=== PATIENT | female | born 2000 | race Hispanic/Latino ===

== ENCOUNTER 2019-06-04 07:17 | Emergency (ER) | payer OTHER ==
[~2019-06-04] VITALS: Ht 154.9 cm; Wt 72.6 kg
[2019-06-04] MEDS ORDERED: SODIUM CHLORIDE 0.9% 1000ML 1,000 ML IV STA (07:25)
[2019-06-04 07:53] LABS: BASOPHILS % 0.4 % (0.0-1.0); EOSINOPHILS % 0.5 % (0.0-6.0); HEMATOCRIT 34.5 % (34.2-44.1); HEMOGLOBIN 11.1 g/dL (12.0-16.0); LYMPHOCYTES # (AUTO) 1.4 (1.0-3.2); LYMPHOCYTES % 17.8 % (18.0-39.1); MEAN CORPUSCULAR HEMOGLOBIN 22.9 pg (28-32); MEAN CORPUSCULAR HGB CONC 32.2 g/dL (31-35); MEAN CORPUSCULAR VOLUME 71.1 fL (81-99); MONOCYTES # (AUTO) 0.8 (0.2-0.8); MONOCYTES % 9.8 % (4.4-11.3); NEUTROPHILS # (AUTO) 5.5 (2.1-6.9); PLATELET COUNT 350 x10e3/uL (140-360); RED BLOOD COUNT 4.85 x10e6/uL (3.6-5.1)
--- NOTE | 2019-06-04 08:05 | Diagnostic Imaging Report ---
EXAMINATION: CHEST 2 VIEWS INDICATION: Chest pain COMPARISON: None FINDINGS: TUBES and LINES: None. LUNGS: Lungs are well inflated. Lungs are clear. There is no evidence of pneumonia or pulmonary edema. PLEURA: No pleural effusion or pneumothorax. HEART AND MEDIASTINUM: The cardiomediastinal silhouette is unremarkable. BONES AND SOFT TISSUES: No acute osseous lesion. Soft tissues are unremarkable. UPPER ABDOMEN: No free air under the diaphragm. IMPRESSION: No acute thoracic radiographic abnormality. Signed by: Anders Arrington DO on 06/04/2019 8:02 AM
[2019-06-04] MEDS ORDERED: KETOROLAC TROMETHAMINE 30 MG/ML VIAL IV STA (08:11)
[2019-06-04 08:15] LABS: ALANINE AMINOTRANSFERASE 12 IU/L (0-55); ALBUMIN 3.6 g/dL (3.5-5.0); ALKALINE PHOSPHATASE 70 IU/L (40-150); ANION GAP 15.9 mmol/L (8-16); BLOOD UREA NITROGEN 5 mg/dL (7-26); BUN/CREATININE RATIO 7 (6-25); CALCIUM 8.9 mg/dL (8.4-10.2); CARBON DIOXIDE 21 mmol/L (22-29); CHLORIDE 103 mmol/L (98-107); CREATINE KINASE 36 IU/L (29-168); EST GLOMERULAR FILTRATION RATE > 60 ML/MIN (60-); GLUCOSE 105 mg/dL (74-118); SODIUM 137 mmol/L (136-145)
[2019-06-04 08:18] LABS: PHENCYCLIDINE SCREEN,URINE NEGATIVE (NEGATIVE)
[2019-06-04 08:19] LABS: AMPHETAMINES SCREEN,URINE NEGATIVE (NEGATIVE); BENZODIAZEPINES SCREEN,URINE NEGATIVE (NEGATIVE)
[2019-06-04 08:26] LABS: POTASSIUM 2.9 mmol/L (3.5-5.1)
[2019-06-04] MEDS ORDERED: POTASSIUM CHLORIDE 10MEQ EA PO ONE (08:50)
--- NOTE | 2019-06-04 09:58 | Diagnostic Imaging Report ---
CT of the chest, PE protocol, with contrast. History: Chest pain. Comparison: Chest radiograph from earlier 06/04/2019. Technique: Multidetector thin collimation CT scanning of the chest was performed from the level of the apices to the upper abdomen during the pulmonary arterial phase, after intravenous administration of contrast. Coronal and sagittal reformations were reviewed. RADIATION DOSE: Total DLP: 477.88 mGy*cm Dose modulation, iterative reconstruction, and/or weight based adjustment of the mA/kV was utilized to reduce the radiation dose to as low as reasonably achievable. FINDINGS: There is contrast opacification of the pulmonary arteries to the level of the segmental arteries. The more distal segmental and subsegmental arteries are not well opacified and suboptimally evaluated. The pulmonary arteries distribute normally. There is no evidence of a filling defect to the level of the segmental arteries to suggest pulmonary thromboembolism. The thyroid and remaining visualized structures within the base of the neck demonstrate no significant abnormalities. The thoracic aorta is normal course and caliber. The heart is not enlarged. There is no abnormal pericardial fluid present. Normal-sized axillary lymph nodes noted. There is no abnormal axillary, mediastinal, or hilar lymph node enlargement. The trachea and proximal airways are patent. Examination of the lungs demonstrate no evidence for consolidation, pneumothorax, mass, suspicious nodule, or pleural effusion. The visualized upper abdominal contents demonstrate no significant abnormalities. The osseous structures demonstrate no evidence for acute fracture or destructive process. The extrathoracic soft tissues are unremarkable. IMPRESSION: No evidence for pulmonary thromboembolism or other acute intrathoracic process Signed by: Dr. Larry Daley MD on 06/04/2019 9:54 AM
[2019-06-04] MEDS ORDERED: SODIUM CHLORIDE 0.9% INJ 50 ML BAG IV ONE (16:13)
[2019-06-04] MEDS ORDERED: IOPAMIDOL 370 MG/ML 50ML INFUS..BTL INJ ONE (16:14)
--- OUTSIDE RECORDS SUMMARY | 2019-06-13 10:51 | XMS REPORT ---
Author Author [facility] Address Unknown Phone Unavailable Care Team Providers Care Medicine Teacher Name Role Phone AMILCAR HALL Unavailable Unavailable Problems This patient has no known problems. Allergies, Adverse Reactions, Alerts This patient has no known allergies or adverse reactions. Medications This patient has no known medications. Results Test Description Test Time Test Comments Text Results Atomic Results Result Comments CT CHEST W 2019-06-04 09:47:00 [facility] [address] [id number] Patient Name: CONNOR DON MR #: [id number] : 2000 Age/Sex: 19/F Req #: [id number] Adm Physician: Ordered by: AMILCAR HALL DO Report #: [id number] Location: ER Room/Bed: Procedure: [id number] CT/CT CHEST W Exam Date: 06/04/19 Exam Time: 929 REPORT STATUS: Signed CT of the chest, PE protocol, with contrast. History: C hest pain. Comparison: Chest radiograph from earlier 06/04/2019. Technique: Multidetector thin collimation CT scanning of the chest was performed from the level of the apices to the upper abdomen during the pulmonary arterial phase, after intravenous administration of contrast. Coronal and sagittal reformations were reviewed. RADIATION DOSE: Total DLP: 477.88 mGy*cm Dose modulation, iterative reconstruction, and/or weight based adjustment of the mA/kV was utilized to reduce the radiation dose to as low as reasonably achievable. FINDINGS: There is contrast opacification of the pulmonary arteries to the level of the segmental arteries. The more distal segmental and subsegmental arteries are not well opacified and suboptimally evaluated. The pulmonary arteries distribute normally. There is no evidence of a filling defect to the level of the segmental arteries to suggest pulmonary thromboembolism. The thyroid and remaining visualized structures within the base of the neck demonstrate no significant abnormalities. The thoracic aorta is normal course and caliber. The heart is not enlarged. There is no abnormal pericardial fluid present. Normal-sized axillary lymph nodes noted. There is no abnormal axillary, mediastinal, or hilar lymph node enlargement. The trachea and proximal airways are patent. Examination of the lungs demonstrate no evidence for consolidation, pneumothorax, mass, suspicious nodule, or pleural effusion. The visualized upper abdominal contents demonstrate no significant abnormalities. The osseous structures demonstrate no evidence for acute fracture or destructive process. The extrathoracic soft tissues are unremarkable. IMPRESSION: No evidence for pulmonary thromboembolism or other acute intrathoracic process Signed by: Dr. Larry Daley MD on 06/04/2019 9:54 AM Dictated By: LARRY DALEY MD 3 Transcribed By: RANI on 06/04/19953 COPY TO: AMILCAR HALL DO CHEST 2 VIEWS 2019-06-04 08:02:00 [address] [id number] Patient Name: CONNOR DON MR #: [id number] : 2000 Age/Sex: 19/F Req #: [id number] Adm Physician: Ordered by: AMILCAR HALL DO Report #: [id number] Location: ER Room/Bed: Procedure: [id number] DX/CHEST 2 VIEWS Exam Date: 06/04/19 Exam Time: 0720 REPORT STATUS: Signed EXAMINATION: CHEST 2 VIEWS INDICATION: Chest pain COMPARISON: None FINDINGS: TUBES and LINES: None. LUNGS: Lungs are well inflated. Lungs are clear. There is no evidence of pneumonia or pulmonary edema. PLEURA: No pleural effusion or pneumothorax. HEART AND MEDIASTINUM: The cardiomediastinal silhouette is unremarkable. BONES AND SOFT TISSUES: No acute osseous lesion. Soft tissues are unremarkable. UPPER ABDOMEN: No free air under the diaphragm. IMPRESSION: No acute thoracic radiographic abnormality. Signed by: Anders Arrington DO on 06/04/2019 8:02 AM Dictated By: ANDERS ARRINGTON DO 1 Transcribed By: RANI on 06/04/19801 COPY TO: AMILCAR HALL DO
== END 2019-06-04 10:53 | disposition home or self-care (01) ==
LOC: ER 07:17
DX: R07.89 Other chest pain (principal); E87.6 Hypokalemia
CPT/HCPCS: 36415; 71046; 71260; 80053; 80307; 81025; 82550; 82553; 83880; 84484; 85025; 85379; 93005; 99284; J1885; J7030; Q9967

== ENCOUNTER → 2020-07-24 | Emergency (ER) | payer OTHER ==
[~2020-07-24] VITALS: Ht 154.9 cm; Wt 72.6 kg
[~2020-07-24] MED LIST: BACTRIM DS TAB1 EACH PO; CEPHALEXIN500 MG PO; HYDROCODONE/APAP 7.5MG-325MG 1 EA TAB PO STA; KEFLEX125 MG/5 M PO; ONDANSETRON HCL 4 MG ORAL DISINTEGRATING TAB PO ONE; TYLENOL # 31 EA PO
[2020-07-24 14:11] VITALS: BP 110/70
== END | disposition home or self-care (01) ==
LOC: ER 12:22
DX: L05.01 Pilonidal cyst with abscess (principal)
CPT/HCPCS: 10080; 99283; Q0162